=== PATIENT | male | born 1990 | race Caucasian/White ===

== ENCOUNTER 2016-08-19 09:51 | Emergency (ER) | payer MEDICAID ==
[~2016-08-19] VITALS: Ht 188 cm; Wt 122.5 kg
[~2016-08-19 09:51] MED LIST: ACE3T; SULF400T11
[2016-08-19 10:16] VITALS: BP 143/90
== END 2016-08-19 10:49 | disposition home or self-care (01) ==
LOC: ER 09:51
DX: S39.012A Strain of muscle, fascia and tendon of lower back, initial encounter (principal); G89.29 Other chronic pain; F17.210 Nicotine dependence, cigarettes, uncomplicated

== ENCOUNTER 2019-01-08 19:44 | Emergency (ER) | payer SELFPAY ==
[~2019-01-08] VITALS: Ht 185.4 cm; Wt 98.0 kg
[2019-01-08 19:50] VITALS: BP 115/75
[2019-01-08] MEDS ORDERED: IBUPROFEN 600 MG TAB PO ONE (21:00)
[2019-01-08] MEDS ORDERED: HYDROcodone-ACET 5/325MG TAB PO ONE (21:00)
== END 2019-01-08 21:00 | disposition home or self-care (01) ==
LOC: ER 19:47
DX: S66.912A Strain of unspecified muscle, fascia and tendon at wrist and hand level, left hand, initial encounter (principal); S60.212A Contusion of left wrist, initial encounter; F17.210 Nicotine dependence, cigarettes, uncomplicated; V86.56XA Driver of dirt bike or motor/cross bike injured in nontraffic accident, initial encounter; Y93.89 Activity, other specified; Y99.8 Other external cause status; Y92.89 Other specified places as the place of occurrence of the external cause
CPT/HCPCS: 29125; 73110

== ENCOUNTER 2022-04-29 06:48 | Emergency (ER) | payer MEDICAID ==
[~2022-04-29] VITALS: Ht 182.9 cm; Wt 114.0 kg
[2022-04-29 08:04] VITALS: BP 127/78
[2022-04-29] MEDS ORDERED: FLUORESCEIN SOD OPTH TEST STRIP LEFTEYE ONE (08:45)
== END 2022-04-29 09:20 | disposition home or self-care (01) ==
LOC: ER 06:48
DX: T15.82XA Foreign body in other and multiple parts of external eye, left eye, initial encounter (principal); F17.210 Nicotine dependence, cigarettes, uncomplicated; X58.XXXA Exposure to other specified factors, initial encounter; Y93.89 Activity, other specified; Y92.89 Other specified places as the place of occurrence of the external cause; Y99.8 Other external cause status